=== PATIENT | male | born 1950 | race Caucasian/White ===

== ENCOUNTER 2020-06-06 14:02 | Inpatient (IN) | payer MEDICARE ==
[2020-06-06] VITALS (8 sets, daily range): BP systolic 111–149; BP diastolic 71–84; BMI 29.1
[~2020-06-06] VITALS: Ht 167.6 cm; Wt 81.6 kg
[2020-06-06 14:53] LABS: BASOPHILS 0.2 % (0-2); EOSINOPHILS 0.2 % (0-7); HEMATOCRIT 48.6 % (42.0-54.0); HEMOGLOBIN 15.8 g/dL (13.5-17.5); IMMATURE GRANULOCYTES 1.7 % (0-5); LYMPHOCYTES 6.2 % (15-50); MCHC 32.5 g/dL (31.0-37.0); MCV 98.4 fL (80.0-100.0); MEAN PLATELET VOLUME 12.6 fL (7.4-10.4); NEUTROPHILS 78.7 % (40-80); PLATELET COUNT 242 10x3/uL (130-400); RBC 4.94 10x6/uL (4.20-6.10); RDW 13.2 % (11.5-14.5); WBC 17.2 10x3/uL (4.8-10.8)
[2020-06-06 15:30] LABS: APTT 31.1 SECONDS (22.8-39.4); INR 1.11 (0.85-1.17); PROTIME 14.2 SECONDS (11.6-15.0)
[2020-06-06 15:52] LABS: ALBUMIN 2.9 g/dL (3.4-5.0); ALKALINE PHOSPHATASE 88 U/L (30-120); ALT (SGPT) 36 U/L (10-68); BILIRUBIN - TOTAL 0.55 mg/dL (0.2-1.3); CALC OSMOLALITY 271 mosm/kg (275-300); CALCIUM 8.7 mg/dL (8.5-10.1); CHLORIDE - SERUM 95 mmol/L (98-107); CKMB 2.2 U/L (0.0-3.6); CREATINE KINASE 161 UL (21-232); CREATININE - SERUM 1.2 mg/dL (0.6-1.3); GLUCOSE 262 mg/dL (74-106); POTASSIUM - SERUM 5.7 mmol/L (3.5-5.1); PRO BNP 1075 pg/mL (0-125); PROTEIN - SERUM 8.1 g/dL (6.4-8.2); SODIUM 130 mmol/L (136-145); TROPONIN-I < 0.017 ng/mL (0.000-0.060); UREA NITROGEN 19 mg/dL (7-18); eGFR NON AFRICAN AMERICAN 63 mL/min (90-120)
--- NOTE | 2020-06-06 17:04 | NUR ---
NS INFUSED PRIOR TO TRANSFER FROM 3RD BOLUS WAS 500ML 4TH BOLUS 100ML.
--- NOTE | 2020-06-06 17:46 | NUR ---
PT STATES HE WANTS TO BE A DNR. DOES NOT WANT LIFESAVING MEASURES LIKE INTUBATION OR CHEST COMPRESSIONS. PT STATES HE UNDERSTANDS WHAT A DNR MEANS AND WISHES TO BE KEPT COMFORTABLE IF HIS HEART STOPPS OR HE STOPPS BREATHING. THIS WAS WITNESSED BY A SECOND RN, YUE CAGE. DR STERN NOTIFIED OF THIS.
--- NOTE | 2020-06-06 17:48 | NUR ---
DR CALERO NOTIFIED OF CONSULT. ORDERS RECIEVED.
--- NOTE | 2020-06-06 18:22 | NUR ---
PT STATES HE DOES NOT KNOW HIS HOME MEDS BUT DOES KNOW HIS PHARMACY HE USES.
[2020-06-06 20:54] LABS: CALCIUM 7.8 mg/dL (8.5-10.1); CARBON DIOXIDE 10.1 mmol/L (21.0-32.0); CREATININE - SERUM 1.2 mg/dL (0.6-1.3); MAGNESIUM - SERUM 2.1 mg/dL (1.8-2.4)
[2020-06-06 21:01] LABS: POTASSIUM - SERUM 4.1 mmol/L (3.5-5.1)
[2020-06-07] VITALS (23 sets, daily range): BP systolic 111–159; BP diastolic 56–739
[2020-06-07 05:12] LABS: BASOPHILS 0.1 % (0-2); EOSINOPHILS 0 % (0-7); HEMATOCRIT 44.5 % (42.0-54.0); HEMOGLOBIN 14.6 g/dL (13.5-17.5); IMMATURE GRANULOCYTES 0.7 % (0-5); LYMPHOCYTES 3.9 % (15-50); MCH 31.7 pg (26.0-34.0); MCHC 32.8 g/dL (31.0-37.0); MCV 96.5 fL (80.0-100.0); MEAN PLATELET VOLUME 9.6 fL (7.4-10.4); NEUTROPHILS 83.3 % (40-80); PLATELET COUNT 225 10x3/uL (130-400); RBC 4.61 10x6/uL (4.20-6.10); RDW 12.8 % (11.5-14.5)
[2020-06-07 05:21] LABS: WBC 10.2 10x3/uL (4.8-10.8)
[2020-06-07 05:35] LABS: ALBUMIN 2.8 g/dL (3.4-5.0); BILIRUBIN - TOTAL 0.56 mg/dL (0.2-1.3); CALCIUM 8.6 mg/dL (8.5-10.1); CREATININE - SERUM 1.3 mg/dL (0.6-1.3); MAGNESIUM - SERUM 2.3 mg/dL (1.8-2.4); PROTEIN - SERUM 7.7 g/dL (6.4-8.2)
[2020-06-07 05:42] LABS: ANION GAP 33.4 mmol/L (8-16); CARBON DIOXIDE 7.2 mmol/L (21.0-32.0); POTASSIUM - SERUM 5.6 mmol/L (3.5-5.1)
--- NOTE | 2020-06-07 06:00 | NUR ---
1900- PT AWAKE ALERT ORIENTED X4. TACYPNEIC. IV INFUSING INTO PIV X2. PT DENIES ANY NEEDS AT THIS TIME. BED LOW, CALL LIGHT IN REACH, SIDE RAILS UP X2. 2100- PT RESPOSITIONES SELF AND USES A URINAL. DENIES ANY NEEDS AT THIS TIME. 2300 PT CONFUSED TO TIME AND SITUATION. ATTEMPTING TO GET OUT OF BED. REMOVED WIRES, AND BP CUFF. REORIENTED TO ENVIORNMENT AND USE OF EQUIPMENT 0100 PT URINATING ON FLOOR. STATED TO GET OUT OF HIS HOUSE. REORINETED TO ENVIORNMENT. PROVIDED BATH AN CHANGED LINENS. 0300 PT MORE CONFUSED. URINGATING ON FLOOR. REORIENTED TO ENVIORNMENT. ASSESSMENT COMPLETED. 0500. OPTAINED AM LABS PER ORDER. REPOSITIONED. PT CORE CONFUSED. PULLING AT LINES AND WIRES WHILE ATTEMPTING TO GET OUT OF BED. O530 RECIEVED CRITICAL LABS PT CONTINUES TO GET OUT OF BED, AND PULL AT TUBES AND WIRES. 0600 DR STERN RETURNED CALL UPDATED CONDITON. ORDERS RECIEVED TO INSERT MORALES, AND APPLY SOFT WRIST RESTRAINTS. ADMINISTER LASIX 40 MG ONE TIME, OBTAIN CXR, DECREASED FLUIDS TO 75 ML/HR FOR 2 HOURS THE REUSUME AT 125 ML/HR. WILL CONTINUE TO MONITOR.
--- NOTE | 2020-06-07 11:49 | NUR ---
0700 REPORT RECEIVED ASSESSMENT COMPLETE PT THRASHING AROUND IN BED PULLED UP IN BED AND REPOSITIONED BLOOD SUGAR CHECKS EVERY HOUR
--- NOTE | 2020-06-07 11:56 | NUR ---
0900 CONTINUE TO FOLLOW DKA PROTOCOL PLACED ON BPAP 40% TOLERATING WELL
--- NOTE | 2020-06-07 15:10 | NUR ---
1230 TEST RESULTS COVID-19 NEGATIVE
--- NOTE | 2020-06-07 15:10 | NUR ---
DR CALERO ROUNDING ON PT AND DR LEMONS AT BEDSIDE
--- NOTE | 2020-06-07 15:11 | NUR ---
1400 MOVED PATIENT TO NEW ROOM 2302 REMOVED PTS O2/NC
--- NOTE | 2020-06-07 16:47 | NUR ---
1600 NEW IV 20 GAUGE TO RIGHT AC
[2020-06-07 16:55] LABS: ANION GAP 18.8 mmol/L (8-16); CALCIUM 8.2 mg/dL (8.5-10.1); CARBON DIOXIDE 17.8 mmol/L (21.0-32.0); CREATININE - SERUM 1.2 mg/dL (0.6-1.3); POTASSIUM - SERUM 3.6 mmol/L (3.5-5.1)
--- NOTE | 2020-06-07 18:07 | NUR ---
1700 CHG BATH COMPLETE CONTINUE CBS CHECKS HOURLY
--- NOTE | 2020-06-07 18:43 | NUR ---
1705 A GAP DOWN TO 18.80
--- NOTE | 2020-06-07 19:44 | NUR ---
REC'D PT FROM OFF-GOING NURSE WITH BEDSIDE SHIFT REPORT. INITIAL ASSESSMENT COMPLETED AND RECORDED PER FLOW SHEET. FSBS 66, CALC AND REDUCED RATE TO O.36 ML/HR. (WILL ANA NEXT HOUR). IV'S PERIPHERALLY IN BOTH ARMS, PATENT WITH INFUSIONS INFUSING IN EACH. R ARM IN SOFT WRIST RESTRAINT TO PREVENT PULLING INVASIVE DEVICES. NOT VERY COMMUNICATIVE. WILL CONT TO MONITOR
--- NOTE | 2020-06-07 22:10 | NUR ---
LYING QUIETLY WITH EYES CLOSED BUT EASILY AROUSED EACH TIME COME IN TO TAKE FSBS. ADJUSTING INSULIN DRIP PER PROTOCOL REQUIRED. DENIES ANY NEEDS.
[2020-06-08] VITALS (14 sets, daily range): BP systolic 115–162; BP diastolic 65–91; Ht 167.6 cm; Wt 81.6 kg
[2020-06-08 03:50] LABS: BASOPHILS 0.2 % (0-2); EOSINOPHILS 0 % (0-7); HEMATOCRIT 42.7 % (42.0-54.0); HEMOGLOBIN 14.5 g/dL (13.5-17.5); IMMATURE GRANULOCYTES 0.8 % (0-5); LYMPHOCYTES 6.8 % (15-50); MCH 31.9 pg (26.0-34.0); MEAN PLATELET VOLUME 9.8 fL (7.4-10.4); MONOCYTES 8.8 % (2-11); NEUTROPHILS 83.4 % (40-80); PLATELET COUNT 232 10x3/uL (130-400); RBC 4.54 10x6/uL (4.20-6.10); RDW 12.8 % (11.5-14.5); WBC 8.9 10x3/uL (4.8-10.8)
[2020-06-08 03:56] LABS: MCV 94.1 fL (80.0-100.0)
[2020-06-08 04:09] LABS: BILIRUBIN - TOTAL 0.3 mg/dL (0.2-1.3); CALCIUM 7.9 mg/dL (8.5-10.1); CREATININE - SERUM 1.1 mg/dL (0.6-1.3); MAGNESIUM - SERUM 2.1 mg/dL (1.8-2.4); PHOSPHOROUS 2.4 mg/dL (2.5-4.9); PROTEIN - SERUM 6.6 g/dL (6.4-8.2)
[2020-06-08 04:19] LABS: ALBUMIN 1.9 g/dL (3.4-5.0); ANION GAP 11.2 mmol/L (8-16); CARBON DIOXIDE 23.5 mmol/L (21.0-32.0); POTASSIUM - SERUM 2.7 mmol/L (3.5-5.1)
--- NOTE | 2020-06-08 17:57 | NUR ---
PATIENT IN BED WITH IV INTACT. NO COMPLAINTS OR SIGNS OF DISTRESS. IV INTACT. DAUGHTER CALLED TO CHECK ON PATIENT. PATIENT SLEEPING COMFORTABLY WITH NO PROBLEMS. CALL LIGHT WITHIN REACH.
--- NOTE | 2020-06-08 19:00 | NUR ---
BEDSIDE REPORT RECEIVED AND CARE OF PT ASSUMED. PT LYING IN SUPINE POSITION WITH EYES CLOSED. IV TO RIGHT FA PATENT WITH NS INFUSING AT 125 ML/HR. WILL MONITOR FOR NEEDS.
--- NOTE | 2020-06-08 20:10 | NUR ---
HS MEDICATIONS GIVEN. FSBS 184 THIS CHECK REQUIRING COVERAGE WITH 4 UNITS OF HUMALOG PER SLIDING SCALE. WILL CONTINUE TO MONITOR FOR NEEDS.
[2020-06-09 04:00] VITALS: BP 162/80
[2020-06-09 05:29] LABS: BASOPHILS 0.3 % (0-2); EOSINOPHILS 0.4 % (0-7); HEMATOCRIT 43.9 % (42.0-54.0); HEMOGLOBIN 14.6 g/dL (13.5-17.5); IMMATURE GRANULOCYTES 1.5 % (0-5); LYMPHOCYTES 8.9 % (15-50); MCH 31.7 pg (26.0-34.0); MCHC 33.3 g/dL (31.0-37.0); MCV 95.4 fL (80.0-100.0); MEAN PLATELET VOLUME 10.2 fL (7.4-10.4); MONOCYTES 13.2 % (2-11); NEUTROPHILS 75.7 % (40-80); RDW 13.3 % (11.5-14.5)
[2020-06-09 05:51] LABS: ALKALINE PHOSPHATASE 79 U/L (30-120); ALT (SGPT) 31 U/L (10-68); BILIRUBIN - TOTAL 0.37 mg/dL (0.2-1.3); CALCIUM 8.4 mg/dL (8.5-10.1); CHLORIDE - SERUM 104 mmol/L (98-107); PHOSPHOROUS 2.4 mg/dL (2.5-4.9); POTASSIUM - SERUM 3.4 mmol/L (3.5-5.1); PROTEIN - SERUM 7.2 g/dL (6.4-8.2); SODIUM 139 mmol/L (136-145); eGFR NON AFRICAN AMERICAN 78 mL/min (90-120)
[2020-06-09 05:57] LABS: CALC OSMOLALITY 278 mosm/kg (275-300); CARBON DIOXIDE 16.3 mmol/L (21.0-32.0); GLUCOSE 131 mg/dL (74-106); UREA NITROGEN 10 mg/dL (7-18)
[2020-06-09 06:03] LABS: PLATELET COUNT 284 10x3/uL (130-400)
[2020-06-09 08:00] VITALS: BP 164/94
[2020-06-09 11:59] VITALS: BP 164/92
[2020-06-09 16:58] VITALS: BP 166/92
--- NOTE | 2020-06-09 17:53 | NUR ---
SPOKE WITH PATIENT ABOUT EATING AGAIN. STATED HE CANT EAT ANYTHING BECAUSE EVEN THE THOUGHT OF EATING MAKES HIM SICK. HE SAID HE TRIED TO EAT THE FRUIT EARLIER AND THREW IT UP. HAD A BM TODAY. HE IS TIRED AND SLEEPS ALL DAY. SPOKE WITH DR. HOPE. STATED OK TO GIVEN ZOFRAN. ORDERED GLUCERNA FOR PATIENT AND ZOFRAN. WILL GIVEN HIM ZOFRAN AND CRACKERS TO HELP WITH NAUSEA. CALL LIGHT WITHIN REACH.
--- NOTE | 2020-06-09 18:23 | NUR ---
PATIENT RECIEVED ZOFRAN FOR NAUSEA. SCDS PLACED ON PATIENT BY LINING MACHINE OPERATOR. IV INTACT. NO COMPLAINTS. CALL LIGHT WITHIN REACH.
[2020-06-09 20:00] VITALS: BP 150/81
[2020-06-10] VITALS: BP 146/85
[2020-06-10 04:00] VITALS: BP 136/81
[2020-06-10 05:53] LABS: BASOPHILS 0.2 % (0-2); EOSINOPHILS 0.9 % (0-7); HEMATOCRIT 45.4 % (42.0-54.0); HEMOGLOBIN 14.7 g/dL (13.5-17.5); IMMATURE GRANULOCYTES 1.5 % (0-5); LYMPHOCYTES 8.9 % (15-50); MCHC 32.4 g/dL (31.0-37.0); MCV 95.8 fL (80.0-100.0); MEAN PLATELET VOLUME 10.5 fL (7.4-10.4); MONOCYTES 14.6 % (2-11); NEUTROPHILS 73.9 % (40-80); PLATELET COUNT 268 10x3/uL (130-400); RBC 4.74 10x6/uL (4.20-6.10); RDW 13.4 % (11.5-14.5); WBC 8.2 10x3/uL (4.8-10.8)
[2020-06-10 06:31] LABS: ALBUMIN 1.8 g/dL (3.4-5.0); ALKALINE PHOSPHATASE 94 U/L (30-120); ALT (SGPT) 24 U/L (10-68); BILIRUBIN - TOTAL 0.37 mg/dL (0.2-1.3); CALCIUM 8.8 mg/dL (8.5-10.1); CHLORIDE - SERUM 106 mmol/L (98-107); CREATININE - SERUM 0.8 mg/dL (0.6-1.3); MAGNESIUM - SERUM 2.1 mg/dL (1.8-2.4); PHOSPHOROUS 2.2 mg/dL (2.5-4.9); PROTEIN - SERUM 6.6 g/dL (6.4-8.2); SODIUM 137 mmol/L (136-145); eGFR NON AFRICAN AMERICAN > 90 mL/min (90-120)
[2020-06-10 06:43] LABS: CALC OSMOLALITY 279 mosm/kg (275-300); GLUCOSE 187 mg/dL (74-106); UREA NITROGEN 16 mg/dL (7-18)
[2020-06-10 08:44] VITALS: BP 153/67
--- NOTE | 2020-06-10 10:14 | MORECARE ---
CASE MANAGEMENT DISCHARGE SUMMARY PATIENT: BRYN ALFORD UNIT: [id number] ADM DATE: 06/06/20 AGE: 70 : 48 SEX: M ROOM/BED: D.2224 AUTHOR: HAROLDO VAZQUEZ PHYSICIAN: REFERRING PHYSICIAN: DANIELLE STERN DO DATE OF SERVICE: 06/10/20 Discharge Plan Patient Name: BRYN ALFORD [facility] [facility] 1950 Planned Disposition: Anticipated Discharge Date: Discharge Date: Expected LOS: Initial Reviewer: [email or web address] Initial Review Date: 06/10/2020 Generated: 06/10/20 11:13 am Patient Name: BRYN ALFORD Page [phone] at 1014 All edits/amendments must be made on the electronic document DICTATION DATE: 06/10/20 1014 COOK SHIP: TIANA 06/10/20 1014 RPT#: [id number] DC DATE: STATUS: ADM IN [facility] [address] [place] [address] END OF REPORT
--- NOTE | 2020-06-10 10:21 | MORECARE ---
CASE MANAGEMENT DISCHARGE SUMMARY PATIENT: BRYN ALFORD UNIT: [id number] ADM DATE: 06/06/20 AGE: 70 : 48 SEX: M ROOM/BED: D.2224 AUTHOR: HAROLDO VAZQUEZ PHYSICIAN: REFERRING PHYSICIAN: DANIELLE STERN DO DATE OF SERVICE: 06/10/20 Discharge Plan Patient Name: BRYN ALFORD [facility] : 1950 Planned Disposition: Anticipated Discharge Date: Discharge Date: Expected LOS: Initial Reviewer: [email or web address] Initial Review Date: 06/10/2020 Generated: 06/10/20 11:20 am DCPIA - Discharge Planning Initial Assessment Updated by [email or web address]: Lucinda Arora on 06/10/20 10:19 am * Is the patient Alert and Oriented? Yes * PCP AUGUSTINE * Pharmacy [facility] * Preadmission Environment Home Alone * Equipment Glucometer * Community resources currently utilized None * Additional services required to return to the preadmission environment? Yes * Can the patient safely return to the preadmission environment? Yes * Has this patient been hospitalized within the prior 30 days at any hospital? No Last DP export: 06/10/20 9:14 a Patient Name: BRYN ALFORD Page 23896 at 1021 All edits/amendments must be made on the electronic document DICTATION DATE: 06/10/20 1020 MILL SET UP: TIANA 06/10/20 1020 RPT#: [id number] DC DATE: STATUS: ADM IN [facility] [address] [place] [address] END OF REPORT
--- NOTE | 2020-06-10 10:29 | MORECARE ---
CASE MANAGEMENT DISCHARGE SUMMARY PATIENT: BRYN ALFORD UNIT: [id number] ADM DATE: 06/06/20 AGE: 70 : 48 SEX: M ROOM/BED: D.2224 AUTHOR: TAYLORDOC PHYSICIAN: REFERRING PHYSICIAN: DANIELLE STERN DO DATE OF SERVICE: 06/10/20 Discharge Plan Patient Name: BRYN ALFORD Facility: [facility]:[place] : 1950 Planned Disposition: Anticipated Discharge Date: Discharge Date: Expected LOS: Initial Reviewer: [id number] Initial Review Date: 06/10/2020 Generated: 06/10/20 11:28 am Comments DCP- Discharge Planning Updated by [email or web address]: Lucinda Arora on 06/10/20 9:[address] Patient Name: BRYN ALFORD Admission Status: ER Accout number: [id number] Admission Date: 06-06-2020 : 1950 Admission Diagnosis:TYPE 2 DIABETES MELLITUS WITH KETOACIDOSIS WITHOUT COMA Attending: DANIELLE STERN Current LOS: 4 Anticipated DC Date: Planned Disposition: Primary Insurance: [employer] Discharge Planning Comments: CM met with patient at bedside after explaining CM role and obtaining verbal consent. CM discussed availability / needs of home health, REHAB and medical equipment. MAY NEED A PT EVAL TO HELP ASSESS FOR DC NEEDS. STATES LIVES ALONE AND WAS PREVIOUSLY ON PILLS TO CONTOL DIABETES, IF HE IS DC'D TO HOME WITH INJECTIBLE INSULIN HE MAY NEED HH FOR TEACHING. HE WAS NOT READY TO DECIDE ON A DC PLAN. I WILL TALK WITH HIM AGAIN AFTER HIS PT EVAL. Senior Property Accountant: Lucinda Arora DCPIA - Discharge Planning Initial Assessment Updated by [id number]: Lucinda Arora on 06/10/20 10:19 am * Is the patient Alert and Oriented? Yes * PCP AUGUSTINE * Pharmacy [facility] * Preadmission Environment Home Alone * Equipment Glucometer * Community resources currently utilized None * Additional services required to return to the preadmission environment? Yes * Can the patient safely return to the preadmission environment? Yes * Has this patient been hospitalized within the prior 30 days at any hospital? No Last DP export: 06/10/20 9:21 a Patient Name: BRYN ALFORD Page [phone] at 1029 All edits/amendments must be made on the electronic document DICTATION DATE: 06/10/20 1028 DIRECTOR OF FIELD COORDINATION: TIANA 06/10/20 1028 RPT#: [id number] DC DATE: STATUS: ADM IN [facility] [address] [place] [address] END OF REPORT
[2020-06-10 12:54] VITALS: BP 150/70
--- NOTE | 2020-06-10 15:37 | NUR ---
OT NOTE: PT COMPLETED BED MOB TASKS WITH SBA/CGA. PT STATED HE IS SLEEPY. [phone] THANK YOU,ZIGGY BYERS
[2020-06-10 16:54] VITALS: BP 154/68
[2020-06-10 20:00] VITALS: BP 162/89
[2020-06-11] VITALS: BP 120/63
[2020-06-11 04:00] VITALS: BP 90/58
[2020-06-11 05:04] LABS: BASOPHILS 0.3 % (0-2); EOSINOPHILS 2.5 % (0-7); HEMATOCRIT 42.7 % (42.0-54.0); HEMOGLOBIN 14.3 g/dL (13.5-17.5); IMMATURE GRANULOCYTES 1.9 % (0-5); LYMPHOCYTES 14.5 % (15-50); MCH 31.3 pg (26.0-34.0); MCHC 33.5 g/dL (31.0-37.0); MEAN PLATELET VOLUME 9.7 fL (7.4-10.4); MONOCYTES 17.4 % (2-11); NEUTROPHILS 63.4 % (40-80); PLATELET COUNT 321 10x3/uL (130-400); RBC 4.57 10x6/uL (4.20-6.10); RDW 13.1 % (11.5-14.5); WBC 6.7 10x3/uL (4.8-10.8)
[2020-06-11 05:23] LABS: MCV 93.4 fL (80.0-100.0)
--- NOTE | 2020-06-11 05:23 | NUR ---
I have reviewed this patient and I concur with the Shift Assessment completed by the Licensed Practical Nurse today this shift.
[2020-06-11 05:49] LABS: ALBUMIN 1.7 g/dL (3.4-5.0); ALKALINE PHOSPHATASE 91 U/L (30-120); ALT (SGPT) 29 U/L (10-68); BILIRUBIN - TOTAL 0.41 mg/dL (0.2-1.3); CALC OSMOLALITY 276 mosm/kg (275-300); CALCIUM 8.5 mg/dL (8.5-10.1); CHLORIDE - SERUM 102 mmol/L (98-107); CREATININE - SERUM 0.8 mg/dL (0.6-1.3); GLUCOSE 174 mg/dL (74-106); PHOSPHOROUS 2.5 mg/dL (2.5-4.9); PROTEIN - SERUM 6.2 g/dL (6.4-8.2); SODIUM 136 mmol/L (136-145); UREA NITROGEN 15 mg/dL (7-18); eGFR NON AFRICAN AMERICAN > 90 mL/min (90-120)
[2020-06-11 05:52] LABS: CARBON DIOXIDE 24.4 mmol/L (21.0-32.0); POTASSIUM - SERUM 3.3 mmol/L (3.5-5.1)
[2020-06-11 08:00] VITALS: BP 121/70
--- NOTE | 2020-06-11 08:50 | NUR ---
AM MEDS. ASSESSMENT PER FLOW SHEET. PATIENT IS WITHOUT DISTRESS.CALL LIGHT IN REACH.
[2020-06-11 12:11] VITALS: BP 151/89
--- NOTE | 2020-06-11 12:27 | NUR ---
GLASSES TO PATIENT. FOUND IN SHOES IN BAG.
--- NOTE | 2020-06-11 13:08 | NUR ---
Nutrition follow-up: Pt receiving a consistent cho diet with poor po intake at this time - only ~25% of meals. Labs reviewed; glucose is still > 200 some readings Wt: 180# Pt is currently not meeting estimated energy needs Will continue to provide food choices and honor food preferences within diet restrictions. Will offer Isi Plascencia RDN following.
[2020-06-11 16:08] VITALS: BP 142/80
--- NOTE | 2020-06-11 16:56 | NUR ---
OT NOTE: PT COMPLETED SIT TO STAND WITH CGA. PT COMPLETED SIDE STEPPING WITH CGA. PT COMPLETED DOFF GOWN WITH MIN A. PT COMPLETED FACE AND HAND HYGIENE WITH SETUP. [phone] THANK YOU,ZIGGY BYERS
--- NOTE | 2020-06-11 18:48 | NUR ---
REMAINS WITHOUT CHANGE. CONT PLAN OF CARE
[2020-06-11 20:00] VITALS: BP 131/69
[2020-06-12 04:00] VITALS: BP 127/70
[2020-06-12 05:39] LABS: BASOPHILS 0.3 % (0-2); EOSINOPHILS 3.4 % (0-7); HEMATOCRIT 41.6 % (42.0-54.0); HEMOGLOBIN 13.9 g/dL (13.5-17.5); IMMATURE GRANULOCYTES 4.6 % (0-5); MCH 31.2 pg (26.0-34.0); MCHC 33.4 g/dL (31.0-37.0); MCV 93.5 fL (80.0-100.0); MEAN PLATELET VOLUME 9.7 fL (7.4-10.4); MONOCYTES 14.4 % (2-11); NEUTROPHILS 56.3 % (40-80); PLATELET COUNT 320 10x3/uL (130-400); RBC 4.45 10x6/uL (4.20-6.10); RDW 12.9 % (11.5-14.5); WBC 5.8 10x3/uL (4.8-10.8)
[2020-06-12 06:02] LABS: ALBUMIN 1.7 g/dL (3.4-5.0); ALKALINE PHOSPHATASE 88 U/L (30-120); ALT (SGPT) 22 U/L (10-68); CALCIUM 8.3 mg/dL (8.5-10.1); CARBON DIOXIDE 26.3 mmol/L (21.0-32.0); CHLORIDE - SERUM 102 mmol/L (98-107); CREATININE - SERUM 0.7 mg/dL (0.6-1.3); GLUCOSE 204 mg/dL (74-106); MAGNESIUM - SERUM 1.9 mg/dL (1.8-2.4); PHOSPHOROUS 2.7 mg/dL (2.5-4.9); PROTEIN - SERUM 5.9 g/dL (6.4-8.2); SODIUM 137 mmol/L (136-145); eGFR NON AFRICAN AMERICAN > 90 mL/min (90-120)
[2020-06-12 06:07] LABS: CALC OSMOLALITY 278 mosm/kg (275-300); POTASSIUM - SERUM 3.5 mmol/L (3.5-5.1); UREA NITROGEN 11 mg/dL (7-18)
[2020-06-12 08:13] VITALS: BP 133/75
--- NOTE | 2020-06-12 11:37 | NUR ---
LYING IN BED,WITHOUT DISTRESS.MONITOR FOR NEEDS
[2020-06-12 11:56] VITALS: BP 132/75
[2020-06-12] MEDS ORDERED: IPRAT-ALBUT 0.5-3 ML UPD (12:28)
[2020-06-12] MEDS ORDERED: FLORAJEN3 CAPS460 MG PO (12:29)
[2020-06-12] MEDS ORDERED: TESSALON PERLE100 MG PO (12:29)
[2020-06-12] MEDS ORDERED: MUCINEX600 MG PO (12:29)
[2020-06-12] MEDS ORDERED: LANTUS INS100 UNITS/ SC (12:29)
--- NOTE | 2020-06-12 12:55 | NUR ---
PT DAUGHTER CALLED AND STATED THAT PT IS CONFUSED, NOT EATING, HAS NO STRENGTH AND SHOULD NOT BE DC HOME. PT DAUGHTERF PARTHA WOULD LIKE FOR TUBE FORMER OPERATOR TO CALL IN REGARDS TO CONCERNS A [phone]. WILL LISSET MESSAGE
[2020-06-12 15:22] VITALS: BP 131/66
--- NOTE | 2020-06-12 15:30 | NUR ---
OT NOTE: PT COMPLETED SUPINE TO SIT WITH CGA.PT COMPLETED ADL MOB WITH CGA. PT REQUIRED TOTAL A WITH MEDICAL EQUIPMENT DURING MOBILITY. PT COMPLETED TOILETING WITH SBA. (PM) PT COMPLETED BUE AROM EXS TOLERATED. PT COMPLETED BED MOB TASKS WITH SBA. PT COMPLETED SCOOTING WITH SBA. NOTIFIED NURSING THAT IV WAS BOTHERING PT. [phone] THANK YOU,ZIGGY BYERS
--- NOTE | 2020-06-12 15:45 | NUR ---
Rehab Note- Acute Inpatient prescreen order received. The patient has [facility] insurance and will require a PreAuth. Will begin PreAuth process at this time. Faxed clinicals in at this time for review. Will follow at this time. THank you for this referral! Siena Stephenson RN Clinical Liaison, [facility] Rehab
[2020-06-12 20:00] VITALS: BP 135/77
--- NOTE | 2020-06-13 01:16 | NUR ---
COLTEN CUEVA TAKING VITAL SIGNS. PT'S OXYGEN SAT 87-88%. PT WASN'T WEARING NASAL CANNULA. PT REFUSES TO PUT OXYGEN BACK ON.
[2020-06-13 04:00] VITALS: BP 129/73
[2020-06-13 06:34] LABS: ALBUMIN 1.8 g/dL (3.4-5.0); ALKALINE PHOSPHATASE 95 U/L (30-120); ALT (SGPT) 23 U/L (10-68); BILIRUBIN - TOTAL 0.43 mg/dL (0.2-1.3); CALC OSMOLALITY 268 mosm/kg (275-300); CALCIUM 8.6 mg/dL (8.5-10.1); CARBON DIOXIDE 30.7 mmol/L (21.0-32.0); CHLORIDE - SERUM 99 mmol/L (98-107); CREATININE - SERUM 0.8 mg/dL (0.6-1.3); GLUCOSE 179 mg/dL (74-106); POTASSIUM - SERUM 3.4 mmol/L (3.5-5.1); PROTEIN - SERUM 6.1 g/dL (6.4-8.2); SODIUM 133 mmol/L (136-145); UREA NITROGEN 10 mg/dL (7-18); eGFR NON AFRICAN AMERICAN > 90 mL/min (90-120)
[2020-06-13 06:38] LABS: BASOPHILS 1.4 % (0-2); EOSINOPHILS 4.4 % (0-7); HEMATOCRIT 41.8 % (42.0-54.0); HEMOGLOBIN 13.9 g/dL (13.5-17.5); IMMATURE GRANULOCYTES 6.1 % (0-5); LYMPHOCYTES 20.3 % (15-50); MCH 31.5 pg (26.0-34.0); MCHC 33.3 g/dL (31.0-37.0); MCV 94.8 fL (80.0-100.0); MEAN PLATELET VOLUME 10.1 fL (7.4-10.4); MONOCYTES 15.5 % (2-11); NEUTROPHILS 52.3 % (40-80); PLATELET COUNT 329 10x3/uL (130-400); RBC 4.41 10x6/uL (4.20-6.10); RDW 12.8 % (11.5-14.5); WBC 6.6 10x3/uL (4.8-10.8)
--- NOTE | 2020-06-13 08:00 | NUR ---
PATIENT IN BED WITH IV INTACT. NO COMPLAINTS OR SIGNS OF DISTRESS. O2 ON AT 2LNC. CALL LIGHT WITHIN REACH.
[2020-06-13] MEDS ORDERED: COZAAR50 MG PO (10:47)
[2020-06-13] MEDS ORDERED: GLIPIZIDE10 MG PO (10:47)
[2020-06-13] MEDS ORDERED: FENOFIBRATE134 MG PO (10:47)
[2020-06-13] MEDS ORDERED: TRULICITY1.5 MG/0.5 SC (10:48)
[2020-06-13] MEDS ORDERED: ZOCOR20 MG PO (10:48)
--- NOTE | 2020-06-13 12:45 | NUR ---
PATIENT SITTING UP IN CHAIR AT THIS TIME. NO COMPLAINTS OR SIGNS OF DISTRESS. CALL LIGHT WITHIN REACH.
[2020-06-13 17:43] VITALS: BP 140/78
--- NOTE | 2020-06-13 18:51 | NUR ---
PATIENT IN BED WITH IV INTACT. NO COMPLAINTS OR SIGNS OF DISTRESS. CALL LIGHT WITHIN REACH.
[2020-06-13 20:00] VITALS: BP 136/77
[2020-06-14 04:00] VITALS: BP 129/85
[2020-06-14 06:48] LABS: BASOPHILS 0.9 % (0-2); HEMATOCRIT 42.4 % (42.0-54.0); IMMATURE GRANULOCYTES 7.9 % (0-5); LYMPHOCYTES 18.4 % (15-50); MCH 31.7 pg (26.0-34.0); MCV 95.9 fL (80.0-100.0); MEAN PLATELET VOLUME 9.6 fL (7.4-10.4); MONOCYTES 15.2 % (2-11); NEUTROPHILS 53.6 % (40-80); PLATELET COUNT 375 10x3/uL (130-400); RBC 4.42 10x6/uL (4.20-6.10); RDW 12.7 % (11.5-14.5); WBC 6.3 10x3/uL (4.8-10.8)
--- NOTE | 2020-06-14 07:10 | NUR ---
RECEIVED REPORT, ASSUMED CARE, SLEEPING, AROUSED EASILY, DENIES NEEDS, BREATHING EVEN UNLABORED, CALL LIGHT IN REACH, BED LOWEST POSITION, IV TO MARIA ANTONIA PATENT, O2 2L NC, WILL CONTINUE POC
[2020-06-14 07:40] LABS: ALBUMIN 1.8 g/dL (3.4-5.0); ALKALINE PHOSPHATASE 102 U/L (30-120); ALT (SGPT) 28 U/L (10-68); BILIRUBIN - TOTAL 0.41 mg/dL (0.2-1.3); CALC OSMOLALITY 280 mosm/kg (275-300); CALCIUM 8.6 mg/dL (8.5-10.1); CARBON DIOXIDE 32.7 mmol/L (21.0-32.0); CHLORIDE - SERUM 102 mmol/L (98-107); CREATININE - SERUM 0.9 mg/dL (0.6-1.3); GLUCOSE 226 mg/dL (74-106); POTASSIUM - SERUM 4.3 mmol/L (3.5-5.1); PROTEIN - SERUM 6.3 g/dL (6.4-8.2); SODIUM 137 mmol/L (136-145); UREA NITROGEN 13 mg/dL (7-18); eGFR NON AFRICAN AMERICAN 88 mL/min (90-120)
[2020-06-14 08:00] VITALS: BP 135/63
[2020-06-14 13:30] VITALS: BP 133/79
[2020-06-14 13:56] LABS: MAGNESIUM - SERUM 1.9 mg/dL (1.8-2.4); POTASSIUM - SERUM 4.7 mmol/L (3.5-5.1)
[2020-06-14 18:26] VITALS: BP 127/74
--- NOTE | 2020-06-14 18:35 | NUR ---
I have reviewed this patient and I concur with the Shift Assessment completed by the Licensed Practical Nurse today this shift.
[2020-06-14 20:00] VITALS: BP 125/66
[2020-06-15] VITALS: BP 110/65
[2020-06-15 04:00] VITALS: BP 104/61
[2020-06-15 05:02] LABS: BASOPHILS 0.5 % (0-2); EOSINOPHILS 2.6 % (0-7); HEMATOCRIT 44.8 % (42.0-54.0); HEMOGLOBIN 14.5 g/dL (13.5-17.5); IMMATURE GRANULOCYTES 6.4 % (0-5); LYMPHOCYTES 19.7 % (15-50); MCH 31.2 pg (26.0-34.0); MCHC 32.4 g/dL (31.0-37.0); MCV 96.3 fL (80.0-100.0); MEAN PLATELET VOLUME 9.3 fL (7.4-10.4); MONOCYTES 15.6 % (2-11); NEUTROPHILS 55.2 % (40-80); PLATELET COUNT 367 10x3/uL (130-400); RBC 4.65 10x6/uL (4.20-6.10); RDW 12.6 % (11.5-14.5); WBC 7.3 10x3/uL (4.8-10.8)
[2020-06-15 05:27] LABS: ALKALINE PHOSPHATASE 107 U/L (30-120); ALT (SGPT) 35 U/L (10-68); BILIRUBIN - TOTAL 0.32 mg/dL (0.2-1.3); CALC OSMOLALITY 271 mosm/kg (275-300); CARBON DIOXIDE 33.5 mmol/L (21.0-32.0); CHLORIDE - SERUM 98 mmol/L (98-107); CREATININE - SERUM 0.9 mg/dL (0.6-1.3); POTASSIUM - SERUM 4.1 mmol/L (3.5-5.1); PROTEIN - SERUM 6.9 g/dL (6.4-8.2); SODIUM 135 mmol/L (136-145); UREA NITROGEN 13 mg/dL (7-18); eGFR NON AFRICAN AMERICAN 88 mL/min (90-120)
[2020-06-15 05:28] LABS: GLUCOSE 128 mg/dL (74-106)
--- NOTE | 2020-06-15 08:05 | NUR ---
PT RESTING QUIETLY IN BED. NO ACUTE DISTRESS NOTED. O2@2L NC IN PLACE. DENIES PAIN AT THIS TIME. PT REPORTS READINESS TO D/C HOME, AND VOICES QUESTIONS REGARDING NEED FOR HOME O2 UPON D/C. EXPLAINED TO PT THAT STAFF WOULD TALK WITH CM REGARDING CONCERN, TO HAVE EVERYTHING SET UP. PT VOICES UNDERSTANDING. IV TO LEFT AC WITH NS @ 20ML/HR INFUSING VIA PUMP. SITE WITHOUT REDNESS OR EDEMA. DENIES FURTHER NEEDS AT THIS TIME. CL WITHIN REACH. ENCOURAGED TO CALL WITH NEEDS. CONTINUE POC
[2020-06-15 08:41] VITALS: BP 137/79
--- NOTE | 2020-06-15 11:35 | NUR ---
Rehab Note- Received a VM from [facility] with [facility] with a denial for an inpatient acute rehab stay that needs can be met at a lower level of care. A peer to peer can be set up by contacting [facility] at [phone] by Ivis 06/16 @ 3223. Left VM for Lucinda Arora CM. Thank you for this referral! Siena Stephenson RN Clinical Liaison, [facility] Rehab
[2020-06-15 11:45] VITALS: BP 114/67
--- NOTE | 2020-06-15 12:16 | MORECARE ---
CASE MANAGEMENT DISCHARGE SUMMARY PATIENT: BRYN ALFORD UNIT: [id number] ADM DATE: 06/06/20 AGE: 70 : 48 SEX: M ROOM/BED: D.2224 AUTHOR: TAYLORDOC PHYSICIAN: REFERRING PHYSICIAN: DANIELLE STERN DO DATE OF SERVICE: 06/15/20 Discharge Plan Patient Name: BRYN ALFORD [facility] [facility] 1950 Planned Disposition: Anticipated Discharge Date: Discharge Date: Expected LOS: Initial Reviewer: [email or web address] Initial Review Date: 06/10/2020 Generated: 06/15/20 1:15 pm Comments DCP- Discharge Planning Updated by [email or web address]: Lucinda Arora on 06/10/20 9:[address] Patient Name: BRYN ALFORD Admission Status: ER Accout number: [id number] Admission Date: 06-06-2020 : 1950 Admission Diagnosis:TYPE 2 DIABETES MELLITUS WITH KETOACIDOSIS WITHOUT COMA Attending: DANIELLE STERN Current LOS: 4 Anticipated DC Date: Planned Disposition: Primary Insurance: [facility] [employer] SOLUTIONS Discharge Planning Comments: CM met with patient at bedside after explaining CM role and obtaining verbal consent. CM discussed availability / needs of home health, REHAB and medical equipment. MAY NEED A PT EVAL TO HELP ASSESS FOR DC NEEDS. STATES LIVES ALONE AND WAS PREVIOUSLY ON PILLS TO CONTOL DIABETES, IF HE IS DC'D TO HOME WITH INJECTIBLE INSULIN HE MAY NEED HH FOR TEACHING. HE WAS NOT READY TO DECIDE ON A DC PLAN. I WILL TALK WITH HIM AGAIN AFTER HIS PT EVAL. Ancillary Services Manager Therapy: Lucinda Arora DCPIA - Discharge Planning Initial Assessment Updated by [email or web address]: Lucinda Arora on 06/10/20 10:19 am * Is the patient Alert and Oriented? Yes * PCP AUGUSTINE * Pharmacy [facility] * Preadmission Environment Home Alone * Equipment Glucometer * Community resources currently utilized None * Additional services required to return to the preadmission environment? Yes * Can the patient safely return to the preadmission environment? Yes * Has this patient been hospitalized within the prior 30 days at any hospital? No External Providers External Provider: [facility] Next Contact Date: Service Request Date: Service Type: Resolution: Reviewer: Comments: External Provider: [facility] Next Contact Date: Service Request Date: Service Type: Resolution: Reviewer: Comments: Coverage Notice Reviewer: [id number] Arora Notice Issued Date-Time: 06/15/2020 12:06 Notice Type: IM Discharge Notice Notice Delivered To: Patient Relationship to Patient: Access Clerk Name: Delivery Method: - Riana Days: Prior Verbal Notification: Recipient Understood Notice: Recipient Signature: Med Rec Note Co-signed by Attending: Coverage Notice Comment: Reviewer: [email or web address] Arora Notice Issued Date-Time: 06/15/2020 12:06 Notice Type: Patient Choice Letter Notice Delivered To: Patient Relationship to Patient: Access Clerk Name: Delivery Method: - Riana Days: Prior Verbal Notification: Recipient Understood Notice: Yes Recipient Signature: Yes Med Rec Note Co-signed by Attending: Coverage Notice Comment: [facility]CARE IV, IRINA Last DP export: 06/10/20 9:29 a Patient Name: BRYN ALFORD Page [phone] at 1216 All edits/amendments must be made on the electronic document DICTATION DATE: 06/15/20 1215 FISHERIES MANAGER: TIANA 06/15/20 1215 RPT#: [id number] DC DATE: STATUS: ADM IN [facility] [address] [place] [address] END OF REPORT
--- NOTE | 2020-06-15 12:47 | MORECARE ---
CASE MANAGEMENT DISCHARGE SUMMARY PATIENT: BRYN ALFORD UNIT: [id number] ADM DATE: 06/06/20 AGE: 70 : 48 SEX: M ROOM/BED: D.2224 AUTHOR: HAROLDO VAZQUEZ PHYSICIAN: REFERRING PHYSICIAN: DANIELLE STERN DO DATE OF SERVICE: 06/15/20 Discharge Plan Patient Name: BRYN ALFORD Facility: [facility]:[place] : 1950 Planned Disposition: Anticipated Discharge Date: Discharge Date: Expected LOS: Initial Reviewer: [email or web address] Initial Review Date: 06/10/2020 Generated: 06/15/20 1:46 pm Comments DCP- Discharge Planning Updated by [id number]: Lucinda Arora on 06/15/20 11:[address] Patient Name: BRYN ALFORD Admission Status: ER Accout number: [id number] Admission Date: 06-06-2020 : 1950 Admission Diagnosis:TYPE 2 DIABETES MELLITUS WITH KETOACIDOSIS WITHOUT COMA Attending: DANIELLE STERN Current LOS: 9 Anticipated DC Date: Planned Disposition: Primary Insurance: [facility] MEDICARE SOLUTIONS Discharge Planning Comments: SPOKE WITH PATIENT AND [facility] SIGNED FOR [facility] . REFERRALS FAXED. PATIENT ANTICIPATES DC TO HOME TODAY IF OXYGEN CAN BE ARRANGED. IMM SIGNED. CM TO FOLLOW AND ASSIST NEEDED. One Piece Expansion Maker Hand: Lucinda Arora DCP- Discharge Planning Updated by [id number]: Lucinda Arora on 06/10/20 9:[address] Patient Name: BRYN ALFORD Admission Status: ER Accout number: [id number] Admission Date: 06-06-2020 : 1950 Admission Diagnosis:TYPE 2 DIABETES MELLITUS WITH KETOACIDOSIS WITHOUT COMA Attending: DANIELLE STERN Current LOS: 4 Anticipated DC Date: Planned Disposition: Primary Insurance: [facility] MED[employer] SOLUTIONS Discharge Planning Comments: CM met with patient at bedside after explaining CM role and obtaining verbal consent. CM discussed availability / needs of home health, REHAB and medical equipment. MAY NEED A PT EVAL TO HELP ASSESS FOR DC NEEDS. STATES LIVES ALONE AND WAS PREVIOUSLY ON PILLS TO CONTOL DIABETES, IF HE IS DC'D TO HOME WITH INJECTIBLE INSULIN HE MAY NEED HH FOR TEACHING. HE WAS NOT READY TO DECIDE ON A DC PLAN. I WILL TALK WITH HIM AGAIN AFTER HIS PT EVAL. One Piece Expansion Maker Hand: Lucindamekhi Arora DCPIA - Discharge Planning Initial Assessment Updated by [id number]: Lucinda Arora on 06/10/20 10:19 am * Is the patient Alert and Oriented? Yes * PCP AUGUSTINE * Pharmacy [facility] * Preadmission Environment Home Alone * Equipment Glucometer * Community resources currently utilized None * Additional services required to return to the preadmission environment? Yes * Can the patient safely return to the preadmission environment? Yes * Has this patient been hospitalized within the prior 30 days at any hospital? No Coverage Notice Reviewer: [id number] Elaine Arora Notice Issued Date-Time: 06/15/2020 12:06 Notice Type: IM Discharge Notice Notice Delivered To: Patient Relationship to Patient: Computer Drafter Name: Delivery Method: - Riana Days: Prior Verbal Notification: Recipient Understood Notice: Recipient Signature: Med Rec Note Co-signed by Attending: Coverage Notice Comment: Reviewer: [email or web address] Elaine Arora Notice Issued Date-Time: 06/15/2020 12:06 Notice Type: Patient Choice Letter Notice Delivered To: Patient Relationship to Patient: Computer Drafter Name: Delivery Method: - Riana Days: Prior Verbal Notification: Recipient Understood Notice: Yes Recipient Signature: Yes Med Rec Note Co-signed by Attending: Coverage Notice Comment: [facility] FOR [facility] PAM, MIYA ,CARE IV, IRINA Last DP export: 06/15/20 11:16 a Patient Name: BRYN ALFORD Page [phone] at 1247 All edits/amendments must be made on the electronic document DICTATION DATE: 06/15/20 1246 CONDITIONER TENDER: TIANA 06/15/20 1246 RPT#: [id number] DC DATE: STATUS: [facility] [address] [place] [address] END OF REPORT
--- NOTE | 2020-06-15 13:20 | NUR ---
Nutrition follow-up: Pt receiving a consistent CHO diet PO intake has improved; now ~55% of last 9 meals Labs: glucose better controlled Wt: 180# +BM RDN following.
--- NOTE | 2020-06-15 17:26 | MORECARE ---
CASE MANAGEMENT DISCHARGE SUMMARY PATIENT: BRYN ALFORD UNIT: [id number] ADM DATE: 06/06/20 AGE: 70 : 46 SEX: M ROOM/BED: D.2224 AUTHOR: TAYLORDOC PHYSICIAN: REFERRING PHYSICIAN: DANIELLE STERN DO DATE OF SERVICE: 06/15/20 Discharge Plan Patient Name: BRYN ALFORD Facility: [facility]:[place] : 1950 Planned Disposition: Anticipated Discharge Date: Discharge Date: 06/15/2020 Expected LOS: Initial Reviewer: [email or web address] Initial Review Date: 06/10/2020 Generated: 06/15/20 6:25 pm Comments DCP- Discharge Planning Updated by [email or web address]: Lucinda Arora on 06/15/20 11:[address] Patient Name: BRYN ALFORD Admission Status: ER Accout number: [id number] Admission Date: 06-06-2020 : 1950 Admission Diagnosis:TYPE 2 DIABETES MELLITUS WITH KETOACIDOSIS WITHOUT COMA Attending: DANIELLE STERN Current LOS: 9 Anticipated DC Date: Planned Disposition: Primary Insurance: [facility] MEDICARE SOLUTIONS Discharge Planning Comments: SPOKE WITH PATIENT AND FOSTER SIGNED FOR [facility] [place] [facility] [place] . REFERRALS FAXED. PATIENT ANTICIPATES DC TO HOME TODAY IF OXYGEN CAN BE ARRANGED. IMM SIGNED. CM TO FOLLOW AND ASSIST NEEDED. Abstract Searcher: Lucinda Arora DCP- Discharge Planning Updated by [email or web address]: Lucinda Arora on 06/10/20 9:[address] Patient Name: BRYN ALFORD Admission Status: ER Accout number: [id number] Admission Date: 06-06-2020 : 1950 Admission Diagnosis:TYPE 2 DIABETES MELLITUS WITH KETOACIDOSIS WITHOUT COMA Attending: DANIELLE STERN Current LOS: 4 Anticipated DC Date: Planned Disposition: Primary Insurance: [facility] MEDICARE SOLUTIONS Discharge Planning Comments: CM met with patient at bedside after explaining CM role and obtaining verbal consent. CM discussed availability / needs of home health, REHAB and medical equipment. MAY NEED A PT EVAL TO HELP ASSESS FOR DC NEEDS. STATES LIVES ALONE AND WAS PREVIOUSLY ON PILLS TO CONTOL DIABETES, IF HE IS DC'D TO HOME WITH INJECTIBLE INSULIN HE MAY NEED HH FOR TEACHING. HE WAS NOT READY TO DECIDE ON A DC PLAN. I WILL TALK WITH HIM AGAIN AFTER HIS PT EVAL. Abstract Searcher: Lucindamekhi Arora DCPIA - Discharge Planning Initial Assessment Updated by [email or web address]: Lucinda Arora on 06/10/20 10:19 am * Is the patient Alert and Oriented? Yes * PCP AUGUSTINE * Pharmacy [facility] * Preadmission Environment Home Alone * Equipment Glucometer * Community resources currently utilized None * Additional services required to return to the preadmission environment? Yes * Can the patient safely return to the preadmission environment? Yes * Has this patient been hospitalized within the prior 30 days at any hospital? No Coverage Notice Reviewer: [email or web address] Elaine Arora Notice Issued Date-Time: 06/15/2020 12:06 Notice Type: IM Discharge Notice Notice Delivered To: Patient Relationship to Patient: [place] Name: Delivery Method: - Riana Days: Prior Verbal Notification: Recipient Understood Notice: Recipient Signature: Med Rec Note Co-signed by Attending: Coverage Notice Comment: Reviewer: [email or web address] Elaine Arora Notice Issued Date-Time: 06/15/2020 12:06 Notice Type: Patient Choice Letter Notice Delivered To: Patient Relationship to Patient: [place] Name: Delivery Method: - Riana Days: Prior Verbal Notification: Recipient Understood Notice: Yes Recipient Signature: Yes Med Rec Note Co-signed by Attending: Coverage Notice Comment: [facility] [place] [facility]CARE IV, IRINA Last DP export: 06/15/20 11:47 a Patient Name: BRYN ALFORD Page [id number] at 1726 All edits/amendments must be made on the electronic document DICTATION DATE: 06/15/201724 WHEEL POLISHER: TIANA 06/15/201724 RPT#: [id number] DC DATE:06/15/20 STATUS: DIS IN [facility] [address] [place] [address] END OF REPORT
== END 2020-06-15 16:05 | disposition home health service (06) | DRG 637 ==
LOC: D.ER 14:02 → D.MS 15:39 → D.ICU 15:39 → D.MS 06-08 15:12
PROVIDERS: Emergency Medicine; Family Medicine; Internal Medicine Pulmonary Disease; ADMIT Family Medicine; ATTEND Family Medicine
DX: E11.10 Type 2 diabetes mellitus with ketoacidosis without coma (principal); J96.00 Acute respiratory failure, unspecified whether with hypoxia or hypercapnia; G93.41 Metabolic encephalopathy; E87.2 Acidosis; R78.81 Bacteremia; J90 Pleural effusion, not elsewhere classified; J44.9 Chronic obstructive pulmonary disease, unspecified; E87.5 Hyperkalemia; Z66 Do not resuscitate; F17.210 Nicotine dependence, cigarettes, uncomplicated